=== PATIENT | female | born 1955 | race Caucasian/White ===

== ENCOUNTER 2016-12-01 05:32 | Emergency (ER) | payer BC ==
[2016-12-01] MEDS ORDERED: Dexamethasone IV* 4 MG/ML 1 ML (4 MG) IM ONE (05:56)
[2016-12-01] MEDS ORDERED: Acetaminophen TAB* 325 MG PO ONE (05:57)
[2016-12-01] MEDS ORDERED: Methocarbamol TAB* 500 MG PO ONE (05:57)
[2016-12-01] MEDS ORDERED: Diazepam TAB(*) 5 MG PO ONE (07:35)
[2016-12-01] MEDS ORDERED: Ondansetron ODT TAB* 4 MG PO ONE (07:53)
--- NOTE | 2016-12-01 08:23 | RAD ---
HISTORY: Right shoulder pain COMPARISONS: None VIEWS: 4, Frontal internal rotation, external rotation, outlet, and axillary views of the right shoulder FINDINGS: BONE DENSITY: Normal. BONES: There is no displaced fracture. JOINTS: There is mild osteoarthritis of the glenohumeral and a.c. articulations ALIGNMENT: There is no dislocation. SOFT TISSUES: Unremarkable. OTHER FINDINGS: None. IMPRESSION: NO ACUTE OSSEOUS INJURY. IF SYMPTOMS PERSIST, RECOMMEND REPEAT IMAGING.
--- NOTE | 2016-12-01 08:36 | ED ---
Back Pain - HPI Summary HPI Summary: 60F hx of croh's pw sudden onset intractable upper back pain around R scapular region tender to palp and worse w mvmt. no prior episodes. no sob or cp. no prior episodes. + heavy lifting approx 4 days prior. denies fever. No weakness or numbness. normal gait. normal strength and sensation. - History of Current Complaint Chief Complaint: EDBackInjuryPain Stated Complaint: BACK PAIN Pain Intensity: 10 - Allergies/Home Medications Allergies/Adverse Reactions: Allergies Allergy/AdvReac Type Severity Reaction Status Date / Time Hydromorphone [From Dilaudid] Allergy Severe Anaphylatic Verified 12/01/16 05:39 Shock Metronidazole [From Flagyl] Allergy Severe Vomiting Verified 12/01/16 05:39 Home Medications: Home Medications Econazole Nitrate 1 applic PRN 12/01/16 [History] Ibuprofen [Advil] 200 mg PO Q6HR PRN 12/01/16 [History Confirmed 12/01/16] PMH/Surg Hx/FS Hx/Imm Hx GI History: Reports: Hx Crohn's Disease - Cancer History Hx Chemotherapy: No Hx Radiation Therapy: No - Surgical History Surgery Procedure, Year, and Place: CYST RT. BREAST REMOVED Infectious Disease History: No Infectious Disease History: Denies: Traveled Outside the [place] in Last 30 Days - Social History Alcohol Use: Occasionally Substance Use Type: Reports: None Smoking Status (MU): Never Smoked Tobacco Review of Systems Constitutional: Negative Eyes: Negative Cardiovascular: Negative Respiratory: Negative Gastrointestinal: Negative Musculoskeletal: Other - upper back/ R scapular pain Skin: Negative Physical Exam - Summary Physical Exam Summary: gen: appears anxious, trouble finding comfortable position neuro: normal strength and senstaion all 4 extrem. distal nv intact gi: no tenderness or masses cv: nl s1s2 no murmurs resp: normal lung sounds musculoskeletal: exquisite point tenderness to medial scapular region on R skin: warm and dry, no rash Vital Signs On Initial Exam: Initial Vitals Temp Pulse Resp BP Pulse Ox 36.1 C 60 16 134/100 100 12/01/16 05:35 12/01/16 05:35 12/01/16 05:35 12/01/16 05:35 12/01/16 05:35 - [place] Coma Scale Coma Scale Total: 15 Diagnostics - Vital Signs Vital Signs Temp Pulse Resp BP Pulse Ox 12/01/16 07:51 16 12/01/16 07:30 64 145/57 95 12/01/16 07:00 54 152/87 92 12/01/16 06:43 57 98 12/01/16 06:41 151/67 12/01/16 05:35 36.1 C 60 16 134/100 100 - Laboratory Result Diagrams: 12/01/16 08:18 12/01/16 08:18 Lab Statement: Any lab studies that have been ordered have been reviewed, and results considered in the medical decision making process.
[2016-12-01 08:42] LABS: Hematocrit 43 % (35-47); Hemoglobin 14.2 g/dl (12.0-16.0); Mean Corpuscular HGB Conc 33 g/dl (31-36); Mean Corpuscular Hemoglobin 31 pg (27-31); Mean Corpuscular Volume 94 fL (80-97); Mean Platelet Volume 9 um3 (7.4-10.4); Red Blood Count 4.52 10^6/ul (4.0-5.4); Red Cell Distribution Width 15 % (10.5-15); White Blood Count 7.5 10^3/ul (3.5-10.8)
[2016-12-01 08:56] LABS: Albumin 4.3 g/dL (3.2-5.2); BUN/Creatinine Ratio 17.8 (8-20); Calcium 9.4 mg/dL (8.6-10.3); EGFR African American 103.9 (>60); EGFR Non-African American 80.8 (>60); Globulin 2.9 g/dL (2-4); Potassium 3.1 mmol/L (3.5-5.0); Total Bilirubin 0.7 mg/dL (0.2-1.0); Total Protein 7.2 g/dL (6.4-8.9)
--- NOTE | 2016-12-01 09:03 | RAD ---
HISTORY: Intractable upper back pain COMPARISONS: None TECHNIQUE: Multiple contiguous axial CT scans were obtained of the thoracic spine without intravenous contrast, with coronal and sagittal multiplanar reformations. FINDINGS: SPINAL CANAL: Evaluation of the central canal is limited on CT technique; however, there is no obvious canalicular mass or epidural hemorrhage. ALIGNMENT: The alignment is normal. VERTEBRAL BODIES: There is mild multilevel anterolateral marginal osteophyte formation. There are sclerotic reactive end plate changes at T7-T8. The vertebral bodies are preserved in height JOINTS: There is mild osteoarthritis of the costovertebral articulations. MUSCULATURE: Unremarkable INTERVERTEBRAL DISCS: There is diffuse loss of intervertebral disc height throughout the spine. AXIAL IMAGES: There is no osseous central canal stenosis or neuroforaminal narrowing. SOFT TISSUES: The visualized soft tissues of the chest and abdomen are unremarkable. OTHER: None IMPRESSION: MILD DEGENERATIVE DISC DISEASE AND OSTEOARTHRITIS MOST PRONOUNCED AT T7-T8. NO OSSEOUS NEURAL FORAMINAL AREA OR CENTRAL CANAL STENOSIS.
--- NOTE | 2016-12-01 09:11 | RAD ---
HISTORY: Intractable upper back pain COMPARISONS: None TECHNIQUE: Multiple contiguous axial CT scans were obtained of the lumbar spine without intravenous contrast, with coronal and sagittal multiplanar reformations. FINDINGS: SPINAL CANAL: Evaluation of the central canal is limited on CT technique; however, there is no obvious canalicular mass or epidural hemorrhage. ALIGNMENT: The alignment is normal. VERTEBRAL BODIES: There is mild anterolateral marginal osteophyte formation. There are sclerotic active) changes at L5-S1. The vertebral bodies preserved in height. Incidentally noted are accessory ribs at L1. JOINTS: There is mild to moderate facet osteoarthritic change most pronounced along the lower lumbar spine MUSCULATURE: Unremarkable INTERVERTEBRAL DISCS: There is diffuse loss of intervertebral disc height throughout the spine. AXIAL IMAGES: T11-T12: There is no osseous neural foraminal area or central canal stenosis. T12-L1: There is no osseous neural foraminal narrowing or central canal stenosis. L1-L2: There is no osseous neural foraminal narrowing or central canal stenosis. L2-L3: There is a broad-based disc bulge. There is moderate bilateral neural foraminal narrowing. There is no osseous central canal stenosis. L3-L4: There is a mild broad-based disc bulge. There is mild bilateral neural foraminal narrowing. There is no osseous central canal stenosis. L4-L5: There is broad-based disc bulge. There is bilateral facet hypertrophy. There is mild bilateral neural foraminal narrowing. There is no osseous central canal stenosis. L5-S1: There is bilateral facet hypertrophy with marginal osteophyte formation at the neural foramina bilaterally. There is severe right and moderate left neural foraminal narrowing. There is no osseous central canal stenosis. SOFT TISSUES: The visualized soft tissues of the abdomen are unremarkable. OTHER: None IMPRESSION: 1. DEGENERATIVE DISC DISEASE AND OSTEOARTHRITIS. 2. THERE IS MULTILEVEL NEURAL FORAMINAL NARROWING DESCRIBED ABOVE MOST PRONOUNCED ON THE RIGHT AT L5-S1. 3. THERE IS NO SIGNIFICANT OSSEOUS CENTRAL CANAL STENOSIS.
--- NOTE | 2016-12-01 09:19 | RAD ---
INDICATION: Intractable upper back pain. Fall 3 months ago. COMPARISON: No relevant prior exams available on the [facility] [place] PACS for comparison. TECHNIQUE: Multidetector CT images foramen magnum to lung apices without contrast. Multiplanar reformation. REPORT: Normal vertebral alignment accounting for exam positioning without spondylolisthesis or subluxation at any level. Negative for cervical vertebral body or posterior element fracture. Negative for paravertebral hematoma. Multilevel degenerative spondylosis and facet joint osteoarthritis. At C3-C4 there is moderate disc space narrowing and dorsal disc osteophyte complex with mild resulting impression on the thecal sac. Uncinate process spurring results in moderate RIGHT and mild LEFT foraminal stenosis. At C4-C5 there is moderate disc space narrowing and mild dorsal disc osteophyte complex with mild resulting central canal stenosis. Uncinate process spurring results in moderate bilateral foraminal stenosis. At C5-C6 there is moderately severe disc space narrowing and mild dorsal disc osteophyte complex with mild resulting impression on the ventral margin of the thecal sac. Uncinate process spurring results in severe RIGHT and moderate LEFT foraminal stenosis. At C6-C7 there is moderately severe disc space narrowing and mild dorsal disc osteophyte complex with mild resulting impression on the ventral margin of the thecal sac. Uncinate process spurring results in severe RIGHT and moderate LEFT foraminal stenosis. IMPRESSION: 1. No evidence for traumatic cervical spine injury. 2. Degenerative spondylosis and facet joint osteoarthritis with mild resulting acquired central canal stenosis at C4-C5 and multilevel significant foraminal stenosis as described.
[2016-12-01] MEDS ORDERED: Potassium Chlor TAB* 20 MEQ TAB.ER PO ONE (09:33)
[2016-12-01 10:18] VITALS: BP 153/85
--- NOTE | 2016-12-02 16:24 | ED ---
Flip Melendrez Angela, scribed for Jose Smith MD on 12/01/16 at 0933 . Progress - Progress Note Progress Note: This pt was signed out at shift change by Dr. Reyes, pending disposition, awaiting C-spine CT, T-spine CT, and L-spine CT results. Pt states she woke up yesterday with excruciating pain in her scapula radiating to her neck. She states she stacked wood "the other day" and she believes this might have contributed to her pain. Pt states she has a back shoulder from when she fell off a ladder 4 months ago. On re-evaluation pt reports her back pain has improved. GENERAL: Patient is a well-developed and nourished female who is lying comfortable in the stretcher. Patient is not in any acute respiratory distress. neuro: normal strength and senstaion all 4 extrem. distal nv intact gi: no tenderness or masses cv: nl s1s2 no murmurs resp: normal lung sounds musculoskeletal: exquisite point tenderness to medial scapular region on R skin: warm and dry, no rash Pt will be discharged to home in stable condition with a diagnosis of back pain. - Results/Orders Results/Orders: C-spine CT results, per radiologist: IMPRESSION: 1. No evidence for traumatic cervical spine injury. 2. Degenerative spondylosis and facet joint osteoarthritis with mild resulting acquired central canal stenosis at C4-C5 and multilevel significant foraminal stenosis as described. ED physician has reviewed this radiology report and agrees. T-spine CT results, per radiologist: IMPRESSION: Mild degenerative disc disease and osteoarthritis most pronounced at T7-T8. No osseous neural foraminal area or central canal stenosis. ED physician has reviewed this radiology report and agrees. L-spine CT results, per radiologist: 1. Degenerative disc disease and osteoarthritis. 2. There is multilevel neural foraminal narrowing as described above most pronounced on the right at L5-S1. 3. There is no significant osseous central canal stenosis. ED physician has reviewed this radiology report and agrees. Re-Evaluation - Re-Evaluation First Eval Re-Evaluation Time: 09:18 Comment: Pt reports her back pain has improved and now able to lay on her back. Course/Dx - Course Course Of Treatment: Pt states she woke up yesterday with excruciating pain in her scapula radiating to her neck. She states she stacked wood "the other day" and she believes this might have contributed to her pain. Pt states she has a back shoulder from when she fell off a ladder 4 months ago. Pt was signed our by Dr. Reyes, to follow up on imaging. Test results are without any significant abnormalities and imaging results are without an acute pathology. The pts symptoms have improved after medications given by Dr. Reyes. Since the pt is feeling better, she will be discharged home with follow up from her PCP. Pt is hemodynamically stable, alert and oriented x3. Pt will be discharged to home in stable condition with a diagnosis of back pain. - Diagnoses Provider Diagnoses: Back pain The documentation as recorded by the Flip gauthier Angela accurately reflects the service I personally performed and the decisions made by me, Jose Smith MD.
== END 2016-12-01 10:16 | disposition home or self-care (01) ==
LOC: ED 05:32
DX: M25.511 Pain in right shoulder (principal); M47.812 Spondylosis without myelopathy or radiculopathy, cervical region; M51.36 Other intervertebral disc degeneration, lumbar region; M47.816 Spondylosis without myelopathy or radiculopathy, lumbar region; M51.34 Other intervertebral disc degeneration, thoracic region; M47.814 Spondylosis without myelopathy or radiculopathy, thoracic region; R00.1 Bradycardia, unspecified; K50.90 Crohn's disease, unspecified, without complications; Z88.5 Allergy status to narcotic agent
CPT/HCPCS: 36415; 72125; 72128; 72131; 80053; 82550; 84484; 85025; 85610; 93005; 96372; 99285; A9270-GY; J1100